=== PATIENT | male | born 1950 | race Caucasian/White ===

== ENCOUNTER 2025-01-10 10:55 | Outpatient (CLI) | payer MEDICARE, OTHER ==
[2025-01-10 19:26] LABS: ALT (SGPT) 14 U/L (Less than 45); AST (SGOT) 18 U/L (11-34); Albumin 3.6 g/dL (3.1-4.5); Alkaline Phosphatase 82 U/L (40-110); Anion Gap 11 mmol/L (10-20); BUN (Urea Nitrogen) 21 mg/dL (8.4-25.7); Bilirubin, Total 0.4 mg/dL (0.3-1.2); Calc. Creatinine Clearance 0 mL/min (70-130); Calcium 8.6 mg/dL (7.8-10.44); Carbon Dioxide 27 mmol/L (23-31); Chloride 106 mmol/L (98-107); Globulin 2.9 g/dL (2.4-3.5); Glucose 62 mg/dL (83-110); Magnesium 2.3 mg/dL (1.6-2.6); Potassium 4.1 mmol/L (3.5-5.1); Sodium 140 mmol/L (136-145)
== END 2025-01-10 10:56 | disposition home or self-care (01) ==
LOC: CSHLAB 10:55
PROVIDERS: ATTEND Surgery
DX: Z01.812 Encounter for preprocedural laboratory examination (principal); C02.9 Malignant neoplasm of tongue, unspecified
CPT/HCPCS: 80053; 83735; 85025